=== PATIENT | male | born 1970 | race Caucasian/White ===

== ENCOUNTER 2022-11-14 07:50 | Day surgery (SDC) | payer OTHER ==
[2022-11-14] MEDS ORDERED: LIDOCAINE HCL 2% 100 MG/5 ML IJ ONE (07:51)
[2022-11-14] MEDS ORDERED: DIPRIVAN 200 MG/20 ML IV ONE (08:54)
--- NOTE | 2022-11-14 10:15 | XRAY ---
Indication: Bilateral L4-S1 MBB. Intraoperative fluoroscopy provided for 11 seconds. Single digital spot image submitted for interpretation demonstrates posterior needle tips projecting over the expected left and right L4-S1 nerve roots. Correlate with intraoperative findings/report.
--- NOTE | 2022-11-14 10:41 | XRAY ---
11 seconds of fluoroscopy was used in surgery for a bilateral L4-S1 MBB.
[2022-11-14] MEDS ORDERED: Lactated Ringers 1,000 ML IV ONE (11:13)
== END 2022-11-14 09:22 | disposition home or self-care (01) ==
LOC: SDC-PAIN 07:50
PROVIDERS: ATTEND Psychiatry & Neurology Pain Medicine
DX: M47.816 Spondylosis without myelopathy or radiculopathy, lumbar region (principal); E11.9 Type 2 diabetes mellitus without complications; Z79.899 Other long term (current) drug therapy
CPT/HCPCS: 64493; 64494; 72020; 77002; 82947; J2704

== ENCOUNTER 2022-12-19 08:39 | Day surgery (SDC) | payer OTHER ==
[2022-12-19] MEDS ORDERED: BUPIVACAINE 0.5% VIAL IJ ONE (08:40)
[2022-12-19] MEDS ORDERED: Depo-Medrol 40 MG/ML IM ONE (08:40)
[2022-12-19] MEDS ORDERED: DIPRIVAN 200 MG/20 ML IV ONE (09:23)
[2022-12-19] MEDS ORDERED: BENADRYL 50 MG/ML ONE (09:37)
[2022-12-19] MEDS ORDERED: TORAdol 30 mg Injection ONE (09:38)
--- NOTE | 2022-12-19 10:49 | XRAY ---
Indication: Bilateral L4-S1 MBB. Intraoperative fluoroscopy provided for 12 seconds. Single digital spot image submitted for interpretation demonstrates posterior needle tips projecting over the expected left and right L4-S1 nerve roots. Correlate with intraoperative findings/report.
--- NOTE | 2022-12-19 10:53 | XRAY ---
12 seconds of fluoroscopy was used in surgery for a bilateral L4-S1 MBB.
[2022-12-19] MEDS ORDERED: Lactated Ringers 1,000 ML IV ONE (14:08)
== END 2022-12-19 09:54 | disposition home or self-care (01) ==
LOC: SDC-PAIN 08:39
PROVIDERS: ATTEND Psychiatry & Neurology Pain Medicine
DX: M47.816 Spondylosis without myelopathy or radiculopathy, lumbar region (principal); E11.9 Type 2 diabetes mellitus without complications; Z79.899 Other long term (current) drug therapy
CPT/HCPCS: 64493; 64494; 72020; 77002; 82947; J1030; J1200; J1885; J2704

== ENCOUNTER 2023-01-23 08:01 | Day surgery (SDC) | payer OTHER ==
[2023-01-23] MEDS ORDERED: BUPIVACAINE 0.5% VIAL IJ ONE (08:02)
[2023-01-23] MEDS ORDERED: XYLOCAINE 1% HCL 20 ML MDV IJ ONE (08:02)
[2023-01-23] MEDS ORDERED: Depo-Medrol 40 MG/ML IM ONE (08:02)
[2023-01-23] MEDS ORDERED: DIPRIVAN 200 MG/20 ML IV ONE ×2 (09:21→09:32)
[2023-01-23] MEDS ORDERED: Versed 2 MG/2 ML Injection ONE (09:22)
[2023-01-23] MEDS ORDERED: BENADRYL 50 MG/ML ONE (09:27)
--- NOTE | 2023-01-23 11:35 | XRAY ---
Indication: Right L4-S1 RFA. Intraoperative fluoroscopy provided for 27 seconds. 3 digital spot image submitted for interpretation demonstrates posterior needle tips projecting over the expected right L4-S1 nerve roots. Correlate with intraoperative findings/report.
--- NOTE | 2023-01-23 11:37 | XRAY ---
27 seconds of fluoroscopy as used in surgery for a right L4-S1 RFA.
[2023-01-23] MEDS ORDERED: Lactated Ringers 1,000 ML IV ONE (11:43)
== END 2023-01-23 11:05 | disposition home or self-care (01) ==
LOC: SDC-PAIN 08:01
PROVIDERS: ATTEND Psychiatry & Neurology Pain Medicine
DX: M47.816 Spondylosis without myelopathy or radiculopathy, lumbar region (principal); E11.9 Type 2 diabetes mellitus without complications; Z79.899 Other long term (current) drug therapy
CPT/HCPCS: 64635; 64636; 72100; 77002; 82947; J1030; J1200; J2250; J2704

== ENCOUNTER 2023-02-13 06:46 | Day surgery (SDC) | payer OTHER ==
[2023-02-13] MEDS ORDERED: BUPIVACAINE 0.5% VIAL IJ ONE (06:47)
[2023-02-13] MEDS ORDERED: LIDOCAINE HCL 1% 50 MG/5 ML VL PF IJ ONE (06:47)
[2023-02-13] MEDS ORDERED: Reglan 10 MG/2 ML IV ONE (06:47)
[2023-02-13] MEDS ORDERED: Depo-Medrol 40 MG/ML IM ONE (06:47)
[2023-02-13] MEDS ORDERED: Pepcid 20 MG VIAL IV ONE (06:47)
[2023-02-13] MEDS ORDERED: Versed 2 MG/2 ML Injection ONE (08:19)
[2023-02-13] MEDS ORDERED: DIPRIVAN 200 MG/20 ML IV ONE ×2 (08:19→08:30)
[2023-02-13] MEDS ORDERED: BENADRYL 50 MG/ML ONE (08:20)
[2023-02-13] MEDS ORDERED: Lactated Ringers 1,000 ML IV ONE (09:41)
--- NOTE | 2023-02-13 09:59 | XRAY ---
Indication: Left L4-S1 RFA. Intraoperative fluoroscopy provided for 22 seconds. 4 digital spot images submitted for interpretation demonstrates posterior needle tips projecting over the expected left L4-S1 nerve roots. Correlate with intraoperative findings/report.
--- NOTE | 2023-02-13 12:12 | XRAY ---
22 seconds of fluoroscopy was used in surgery for a left L4-S1 RFA.
== END 2023-02-13 09:07 | disposition home or self-care (01) ==
LOC: SDC-PAIN 06:46
PROVIDERS: ATTEND Psychiatry & Neurology Pain Medicine
DX: M47.816 Spondylosis without myelopathy or radiculopathy, lumbar region (principal); E11.9 Type 2 diabetes mellitus without complications; Z79.899 Other long term (current) drug therapy
CPT/HCPCS: 64635; 64636; 72100; 77002; 82947; J1030; J1200; J2001; J2250; J2704